=== PATIENT | female | born 1975 | race Caucasian/White ===

== ENCOUNTER 2019-09-29 11:40 | Observation (INO) ==
[2019-09-29] MEDS: SODIUM CHLORIDE 0.9% 1,000 ML IV SCH (12:41)
[2019-09-29 12:47] LABS: Calcium 8.8 MG/DL (8.5-10.1); Osmolality,Calculated 281.3 MOS/KG (273-304)
[2019-09-29 13:40] LABS: Basophils % 0.6 % (0.0-0.8); Eosinophils % 0.8 % (0.00-10.9); Hematocrit 23.8 VOL% (35.7-47.0); Immature Granulocytes % 4.2 %; Immature Granulocytes Absolute 0.21 #; Lymphocytes # 1.4 10*3/uL (1.4-4.0); Mean Corpuscular HGB Conc 25.6 GM/DL (32-36); Mean Platelet Volume 10.8 FL (9.6-12.0); Neutrophils % 61.4 % (38.7-73.9); Platelet Count 277 T/CUMM (130-400); Red Blood Count 3.66 MC/CUMM (3.8-5.5); Red Cell Distribution Width 22.6 % (9.3-17.3)
[2019-09-29 13:42] LABS: Hemoglobin 6.1 GM/DL (12.0-16.0)
[2019-09-29] MEDS ORDERED: SODIUM CHLORIDE 0.9% 1,000 ML IV PRN ×2 (13:42→14:19)
[2019-09-29] MEDS ORDERED: ONDANSETRON 4 MG/2 ML VIAL IV PRN (14:15)
[2019-09-29] MEDS ORDERED: diphenhydrAMINE 50 MG/1 ML VIAL IV PRN (14:19)
[2019-09-29 14:42] LABS: INR 0.9; PT Patient Result 9.6 SECS (9.6-12.2); Partial Thromboplastin Time 22.4 SECS (20.8-36.0)
[2019-09-29 14:43] LABS: Hypochromasia 2+; Microcytosis 3+; Polychromasia 2+
[2019-09-29 14:44] LABS: Elliptocytes 1+; Ovalocytes 1+; Platelet Estimate Adequate; Stomatocytes Slight
[2019-09-29 14:52] LABS: Ferritin 2.4 ng/ml (8-252)
[2019-09-29] MEDS: ACETAMINOPHEN 325 MG TABLET PO PRN (22:38)
[2019-09-30] MEDS: SODIUM CHLORIDE 0.9% 1,000 ML IV SCH ×3 (04:22→21:07)
[2019-09-30 06:26] LABS: Basophils # 0.1 10*3/uL (0.0-0.2); Basophils % 0.9 % (0.0-0.8); Eosinophils # 0.1 10*3/uL (0.0-0.87); Eosinophils % 1.4 % (0.00-10.9); Hematocrit 33.6 VOL% (35.7-47.0); Hemoglobin 9.7 GM/DL (12.0-16.0); Immature Granulocytes % 2.3 %; Immature Granulocytes Absolute 0.15 #; Lymphocytes # 1.8 10*3/uL (1.4-4.0); Lymphocytes % 26.8 % (21.3-54.2); Mean Corpuscular HGB Conc 28.9 GM/DL (32-36); Mean Corpuscular Volume 71.8 FL (87-102); Mean Platelet Volume 9.9 FL (9.6-12.0); Monocytes % 7.2 % (1.7-12.7); NRBC # 0.02 10*3/uL; Neutrophils % 61.4 % (38.7-73.9); Platelet Count 284 T/CUMM (130-400); Red Blood Count 4.68 MC/CUMM (3.8-5.5); Red Cell Distribution Width 24.5 % (9.3-17.3); White Blood Count 6.6 T/CUMM (4-12)
[2019-09-30 06:31] LABS: Bilirubin,Total 0.5 MG/DL (0.2-1.0); Calcium 8.3 MG/DL (8.5-10.1); Osmolality,Calculated 283.8 MOS/KG (273-304); Risk Ratio 3.4; Thyroid Stimulating Hormone 2.7 uIU/ml (0.358-3.74); Total Protein 5.9 G/DL (6.4-8.3); VLDL CHOLESTEROL 29.8 MG/DL
[2019-09-30 06:32] LABS: Anisocytosis 1+; Ovalocytes 1+
[2019-09-30 06:33] LABS: Platelet Estimate Normal; Target Cells 1+
[2019-09-30] MEDS: PANTOPRAZOLE 40 MG TABLET PO SCH (08:56)
[2019-09-30] MEDS ORDERED: ACETAMINOPHEN 325 MG TABLET PO ONE (12:11)
[2019-09-30] MEDS ORDERED: diphenhydrAMINE 50 MG/1 ML VIAL IM ONE (12:11)
[2019-09-30] MEDS ORDERED: FAMOTIDINE 20 MG/2 ML VIAL IV ONE (12:11)
[2019-09-30] MEDS ORDERED: DEXAMETHASONE INJ 20 MG in SODIUM CHLORIDE 0.9% 50 ML IV ONE (12:30)
[2019-09-30] MEDS ORDERED: IRON DEXTRAN 25 MG in SYRINGE 1 EACH IV ONE (12:30)
[2019-09-30] MEDS ORDERED: IRON DEXTRAN 1,500 MG in SODIUM CHLORIDE 0.9% 500 ML IV ONE (13:00)
[2019-09-30] MEDS ORDERED: MELATONIN 3 MG TABLET PO SCH (21:00)
[2019-10-01 05:30] LABS: Basophils % 0.4 % (0.0-0.8); Hematocrit 33.5 VOL% (35.7-47.0); Hemoglobin 9.6 GM/DL (12.0-16.0); Immature Granulocytes % 1.9 %; Immature Granulocytes Absolute 0.09 #; Lymphocytes # 0.5 10*3/uL (1.4-4.0); Lymphocytes % 10.7 % (21.3-54.2); Mean Corpuscular HGB Conc 28.7 GM/DL (32-36); Mean Corpuscular Volume 72.8 FL (87-102); Mean Platelet Volume 9.7 FL (9.6-12.0); Monocytes % 2.6 % (1.7-12.7); Neutrophils % 84.4 % (38.7-73.9); Platelet Count 281 T/CUMM (130-400); Red Cell Distribution Width 25.7 % (9.3-17.3); White Blood Count 4.7 T/CUMM (4-12)
[2019-10-01 05:35] LABS: Hypochromasia 2+; Microcytosis 2+; Polychromasia Few; Spherocytes Few
[2019-10-01 05:36] LABS: Elliptocytes 1+; Platelet Estimate Normal; Target Cells Slight
[2019-10-01 05:46] LABS: Bilirubin,Total 0.8 MG/DL (0.2-1.0); Calcium 8.4 MG/DL (8.5-10.1); Osmolality,Calculated 285.1 MOS/KG (273-304); Total Protein 6.2 G/DL (6.4-8.3)
[2019-10-01] MEDS: SODIUM CHLORIDE 0.9% 1,000 ML IV SCH ×2 (05:52→06:00)
[2019-10-01] MEDS: ACETAMINOPHEN 325 MG TABLET PO PRN (06:01)
[2019-10-01 08:19] VITALS: BP 90/52
[2019-10-01] MEDS: PANTOPRAZOLE 40 MG TABLET PO SCH (08:54)
[2019-10-02 15:52] LABS: Hepatitis B Core IgM Quant 0.08 Index; Hepatitis B Surface Ag Quant < 0.10 Index; Hepatitis B Surface Ag Result Negative (Negative); Hepatitis C Virus Ab Quant 0.06 Index; Hepatitis C Virus Ab Result Negative (Negative)
[2019-10-02 15:53] LABS: Folate 8.5 NG/ML (5.4-24.0)
== END 2019-10-01 11:20 | disposition home or self-care (01) ==
LOC: N.ED 11:40 → N.EDINP 11:40 → N.2W 14:43
PROVIDERS: ADMIT Internal Medicine; ATTEND Internal Medicine